=== PATIENT | male | born 1975 | race Caucasian/White ===

== ENCOUNTER 2016-08-12 19:04 | Emergency (ER) | payer OTHER ==
[~2016-08-12] VITALS: Ht 185.4 cm; Wt 84.1 kg
[2016-08-12 19:22] VITALS: BP 139/84; PULSE 75; RESP 16; O2SAT 100
[2016-08-12] MEDS ORDERED: Ondansetron 2 mg/mL 2 mL Inj IVPUSH PRN (19:30)
[2016-08-12] MEDS ORDERED: 0.9% Sodium Chloride 1,000 ML IV ONE ×2 (19:30→20:25)
[2016-08-12 19:52] LABS: BASOPHILS % (AUTO) 0.2 % (0-3); EOSINOPHILS % (AUTO) 0.7 % (0-5); MONOCYTES % (AUTO) 7.7 % (4-12); Mean Corpuscular Hemoglobin 30.4 pg (27.0-35.0); NEUTROPHILS % (AUTO) 62.8 % (40-74); Platelet Count 195 bil/L (150-400)
[2016-08-12 20:19] VITALS: BP 132/85; PULSE 72; RESP 15; O2SAT 100
[2016-08-12] MEDS ORDERED: HYDROmorphone 0.5 mg/0.5 mL iSecure Syringe IVPUSH PRN (20:25)
--- NOTE | 2016-08-12 21:20 | DRSVH ---
PROCEDURE: CT KUB ([id number]) INDICATIONS: left flank pain TECHNIQUE: Noncontrast 5 mm thick sections acquired from the diaphragms to the symphysis. 5 mm thick coronal an d sagittal reformats were then performed. For radiation dose reduction, the following was used: aut omated exposure control, adjustment of mA and/or kV according to patient size. COMPARISON: None. FINDINGS: Image quality: Excellent. Lung bases: Lung bases are clear. Heart size is normal. Urinary system: Both kidneys are normal in size. 2 mm nonobstructing stone is noted in the midpole of the left kidney. There is a 1 mm stone in the distal left ureter (series 2, image 80) is causing minimal left-sided hydronephrosis. No right-sided renal stones or hydronephrosis. Both ureters appe ar non-dilated throughout their expected courses. Bladder wall thickness is normal; no calcified luis dder stones. Other solid organs: Liver and spleen are normal in size. Gallbladder is within normal limits. Panc reas is normal in contours. No adrenal nodules. Peritoneum and bowel: Unenhanced bowel loops demonstrate normal wall thickness and caliber. No free fluid or air. The appendix is normal. Nodes and vessels: No retroperitoneal or mesenteric adenopathy by size criteria. Aorta and inferior vena cava are normal in caliber. Abdominal wall: No ventral hernias. Pelvis: No free pelvic fluid. No inguinal hernias or adenopathy. Bones: No suspicious bony lesions. No vertebral body compression fractures. IMPRESSION: 1. 1 mm distal left ureteral stone causing minimal left-sided hydronephrosis. 2. 2 mm nonobstructing left renal cortical stone. Dictated by: Stormy Wyman MD, PhD on 08/12/2016 at 21:19 Approved by: Stormy Wyman MD, PhD on 08/12/2016 at 21:19
--- NOTE | 2016-08-12 21:39 | ED.REPORT ---
HPI-General Illness Date of Service Aug 12, 2016 ED Provider: Albert Peterson DO This patient is an otherwise healthy 40 year old male presenting to the ED complaining of left flank/low back pain that started 3-3.5 hrs ago with rapid onset. He reports radiation of his pain into his left groin. Patient states that he is unable to find a comfortable position. Pt. has frequent urgencies to urinate and constipation. Denies hx of kidney stones. Nursing Notes Stated Complaint: RT SIDE EXTREME PAIN/BACK/STOMACH Chief Complaint: Male Abdominal Pain Nursing Notes Reviewed: Yes Allergies: Coded Allergies: No Known Allergies (Unverified , 08/12/16) General Time Seen by MD: 20:24 Chief Complaint Other (Left flank/low back pain) Hx Obtained From: Patient, Other family... Arrived By: Walk-in Sudden in Onset?: No Onset Occurred: 1 - 4 hours ago Symptom Duration: Since onset Location: : Back (left flank) Quality: Painful Radiation: : Does not radiate Severity: Current: Moderate Severity: Maximum: Moderate Recent Healthcare: No recent doctor visit, No recent hospitalization Similar Sx Previous: No Past Medical History Past Medical History Denies: Congestive heart failure, Coronary artery disease, Hypertension Past Surgical History None reported Smoking History Unknown if Ever Smoker Social History Other Social History: Good social support, Local resident Ambulatory Status Independent Review of Systems Full Review of Systems Constitutional: Denies: Chills, Fever GI: Reports: Abdominal pain (groin pain), Constipation Male: Reports Flank pain (Left), Reports Urinary urgency, Reports Urination increased Musculoskeletal: Reports: Back pain (Left lower), Denies: Extremity pain Complete sys rev & neg: except as marked. Physical Exam Vital Signs Vital Signs Date Time Temp Pulse Resp B/P Pulse Ox O2 Delivery O2 Flow Rate FiO2 08/12/16 22:37 88 20 137/94 100 Room Air 08/12/16 20:19 72 15 132/85 100 Room Air 08/12/16 19:22 35.8 75 16 139/84 100 Room Air Initial VS: Reviewed Head / Eyes: Atraumatic, Normocephalic, PERRL ENT: Mucous membranes moist, Conjunctiva normal, No scleral icterus Neck: Supple, Non-tender, Full range of motion Respiratory: Breath sounds normal, Clear to auscultation, No respiratory distress Cardiovascular: Regular rate & rhythm, Heart sounds normal, Intact distal pulses Abdomen / GI: Soft, Non-tender Extremities: Vascular intact, Neuro intact, No swelling, No tenderness Neurologic: Alert, Oriented, Nonfocal Psychiatric: Mood/affect normal, Behavior normal, Normal thought content General/Constitutional: Awake, Alert Distress / Hydration: Positive: Distress moderate Appearance / Presentation: Positive: In pain Back: Atraumatic Flank / Spine / Paraspinal: Positive: Flank tender L (Moderate CVA tenderness) Skin: Color NL, Warm, Dry Color / Condition: Negative: Jaundice present Interpretation & Diagnostics Interpretation & Diagnostics: CT KUB: IMPRESSION: 1. 1 mm distal left ureteral stone causing minimal left-sided hydronephrosis. 2. 2 mm nonobstructing left renal cortical stone. Dictated by: Stormy Wyman MD, PhD on 08/12/2016 at 21:19 Lab Results Interpretation Result Diagram: 08/12/16194108/12/161941 Test 08/12/16 19:42 08/12/16 21:41 White Blood Count 12.3th/mm3 (3.8-10.1) Red Blood Count 5.26mil/mm3 (4.40-5.80) Hemoglobin 16.0g/dL (13.8-17.2) Hematocrit 46.3% (41.0-50.0) Mean Corpuscular Volume 88.0fL (81-100) Mean Corpuscular Hemoglobin 30.4pg (27.0-35.0) Mean Corpuscular Hemoglobin Concent 34.6% (32.0-37.0) Red Cell Distribution Width 11.9% (12.3-15.4) Platelet Count 195bil/L (150-400) Neutrophils (%) (Auto) 62.8% (40-74) Lymphocytes (%) (Auto) 28.4% (14-46) Monocytes (%) (Auto) 7.7% (4-12) Eosinophils (%) (Auto) 0.7% (0-5) Basophils (%) (Auto) 0.2% (0-3) Sodium Level 140mEq/L (134-144) Potassium Level 3.9mEq/L (3.5-5.2) Chloride Level 101mEq/L (97-108) Carbon Dioxide Level 21mmol/L (18-29) Blood Urea Nitrogen 17mg/dL (6-24) Creatinine 0.91mg/dL (0.76-1.27) Estimat Glomerular Filtration Rate 98mL/min (>59) Glucose Level 134mg/dL (60-99) Calcium Level 9.2mg/dL (8.5-10.1) Total Bilirubin 0.6mg/dL (0.0-1.2) Aspartate Amino Transf (AST/SGOT) 22U/L (0-50) Alanine Aminotransferase (ALT/SGPT) 21U/L (0-44) Alkaline Phosphatase 75U/L (25-150) Total Protein 7.4g/dL (6.4-8.4) Albumin 4.6g/dL (3.4-5.0) Hold Vivar Top Tube Received (Received) Urine Color Dark yellow (YELLOW) Urine Appearance Hazy (CLEAR,HAZY) Urine pH 5.5 (5.0-8.0) Urine Specific [place] 1.036 (1.003-1.035) Urine Protein Tracemg/dL (NEG,TRACE) Urine Glucose (UA) Negativemg/dL (NEGATIVE) Urine Ketones 40mg/dL (NEGATIVE) Urine Occult Blood Large (NEGATIVE) Urine Nitrite Negative (NEGATIVE) Urine Bilirubin Small (NEGATIVE) Urine Ictotest Positive (Negative) Urine Urobilinogen Normalmg/dL (NORMAL) Urine Leukocyte Esterase Negative (NEGATIVE) Urine RBC >50/hpf (0-2) Urine WBC 0-5/hpf (0-5) Urine Epithelial Cells Occasional/hpf (NONE-MOD) Urine Crystals None seen (NONE SEEN) Urine Bacteria None/hpf (NONE-FEW) Urine Hyaline Casts None/lpf (NONE) Urine Granular Casts None seen (NONE SEEN) Urine Waxy Casts None seen (NONE SEEN) Urine Red Blood Cell Casts None seen (NONE SEEN) Urine White Blood Cell Casts None seen (NONE SEEN) Urine Mucus Present (None Seen) Urine Trichomonas None seen (NONE SEEN) Urine Yeast None (NONE SEEN) Pulse Oximetry Interpretation Pulse Oximetry Interpretation: 100% on room air Pulse Oximetry: Pulse Ox normal Re-Eval/Medical Decision Source of Hx: Old records Time of Eval: 21:47 Re-Evaluation/Progress Note: Pt. rechecked. Discussed findings and lab results with pt. Referred him to urology. Ready for discharge. Pt. understands and agrees with plan. All questions have been addressed. Counseled Regarding: Diagnosis, Lab results, Need for follow-up, When/why to return to ED Discharge & Departure Primary Impression: Kidney stone on left side Additional Impression: Renal colic on left side Disposition: Home Discharge Condition All VS Reviewed: Yes Condition: Stable Patient Instructions: Renal Colic (ED) Additional Instructions: Thank you for entrusting your care with us today. Your CT scan showed that you have left-sided kidney stones. Take 1-2 Percocet every 4-6 hours as needed for pain. Do not drink alcohol, drive, or take acetaminophen while on this medication. Take Zofran as needed for nausea. Take Flomax as directed. Follow up with your primary care provider or Dr. Hercules, urologist, for further evaluation. Return to the emergency department if you develop increasing pain, fever, nausea, chills, or any other concerning or new symptoms. Referrals: Katia Hercules MD [facility] Portions of this note were transcribed by Jordyn Barrientos and Marcela Hernández I, Dr. Peterson personally performed the history, physical exam and medical decision-making ; I reviewed and confirmed the accuracy of the information in the transcribed note. Signed by: Jordyn Barrientos and Dena Frias, 08/12/2016 and 2209. copies to: Katia Hercules MD; [facility] Albert Peterson DO Aug 12, 2016 21:39 Bhumi Barrientos [Jordyn] Aug 12, 2016 21:51 Marcela Hernández Aug 12, 2016 22:09
[2016-08-12] MEDS ORDERED: _oxyCODONE/APAP 5-325 mg Tablet PO PRN (21:45)
[2016-08-12] MEDS ORDERED: _Ondansetron ODT 4 mg Tablet PO PRN (21:45)
[2016-08-12 22:23] LABS: APPEARANCE,URINE HAZY (CLEAR,HAZY); COLOR,URINE DARK YELLOW (YELLOW); OCCULT BLOOD,URINE LARGE (NEGATIVE); PH,URINE 5.5 (5.0-8.0)
[2016-08-12 22:24] LABS: ICTOTEST,URINE POSITIVE (Negative); UROBILINOGEN,URINE NORMAL (NORMAL)
[2016-08-12 22:37] VITALS: BP 137/94; PULSE 88; RESP 20; O2SAT 100
== END 2016-08-12 22:38 | disposition home or self-care (01) ==
LOC: SED 19:04
DX: N20.0 Calculus of kidney (principal); N23 Unspecified renal colic
CPT/HCPCS: 36415; 74176; 80053; 81001; 85025; 96361; 96374; 96375; 99285; J1170; J2405; J7030